=== PATIENT | female | born 2000 ===

== ENCOUNTER 2024-05-24 08:00 | Outpatient (CLI) | payer BC ==
--- NOTE | 2024-05-24 14:20 | XRAY Report ---
Foot 3+V RT HISTORY: 23 years of age, RIGHT ANKLE/FOOT PAIN TECHNIQUE: Foot 3+V RT COMPARISON: None. FINDINGS/IMPRESSION: No acute fracture or dislocation. Joint spaces are well maintained. Reviewed by: Nichole Molina MD on 05/24/2024 2:19 PM PDT Approved by: Nichole Molina MD on 05/24/2024 2:19 PM PDT Station ID: [id number]
--- NOTE | 2024-05-24 14:22 | XRAY Report ---
Ankle 3+V RT HISTORY: 23 years of age, RIGHT ANKLE/FOOT PAIN TECHNIQUE: Ankle 3+V RT COMPARISON: None. FINDINGS/IMPRESSION: Mild medial malleolar soft tissue swelling. No acute fracture or dislocation. Joint spaces are well m aintained. Reviewed by: Nichole Molina MD on 05/24/2024 2:21 PM PDT Approved by: Nichole Molina MD on 05/24/2024 2:21 PM PDT Station ID: [id number]
== END 2024-05-24 23:59 | disposition home or self-care (01) ==
LOC: DI.S 08:00
PROVIDERS: ATTEND Registered Nurse
DX: M25.571 Pain in right ankle and joints of right foot (principal); M79.671 Pain in right foot; R22.41 Localized swelling, mass and lump, right lower limb

== ENCOUNTER 2024-06-17 17:58 | Emergency (ER) | payer BC ==
[2024-06-17 19:21] LABS: BASOPHILS # (AUTO) 0.1 10^3/uL (0.0-0.1); BASOPHILS % (AUTO) 0.9 %; EOSINOPHILS # (AUTO) 0.1 10^3/uL (0.0-0.7); EOSINOPHILS % (AUTO) 0.8 %; LYMPHOCYTES # (AUTO) 2.6 10^3/uL (1.5-3.5); LYMPHOCYTES % (AUTO) 35.4 %; MEAN CORPUSCULAR HEMOGLOBIN 27.2 pg (27.0-31.0); MEAN CORPUSCULAR HGB CONC 32.4 g/dL (32.0-36.0); MEAN CORPUSCULAR VOLUME 83.9 fL (81.0-99.0); MEAN PLATELET VOLUME 10.1 fL (7.9-10.8); MONOCYTES # (AUTO) 0.5 10^3/uL (0.0-1.0); MONOCYTES % (AUTO) 6.4 %; NEUTROPHILS # (AUTO) 4.2 10^3/uL (1.5-6.6); NEUTROPHILS % (AUTO) 56.5 %; PLT - PLATELET COUNT 358 10^3/uL (130-450); RED BLOOD COUNT 4.41 10^6/uL (4.20-5.40); RED CELL DISTRIBUTION WIDTH 13.4 % (12.0-15.0); WHITE BLOOD COUNT 7.4 x10^3/uL (4.8-10.8)
[2024-06-17 19:34] LABS: ALBUMIN 4.1 g/dL (3.2-5.5); ALBUMIN/GLOBULIN RATIO 1.6 (1.0-2.2); BILIRUBIN,TOTAL 0.2 mg/dL (0.2-1.0); CALCIUM 9.3 mg/dL (8.5-10.3); CREATININE 0.8 mg/dL (0.6-1.3); POTASSIUM 3.9 mmol/L (3.5-4.5); TOTAL PROTEIN 6.7 g/dL (6.4-8.9)
--- NOTE | 2024-06-17 19:48 | ED Physician Documentation ---
History of Present Illness - Stated complaint Stated Complaint: BLURRY VISION - Chief complaint Chief Complaint: General - History obtained from History obtained from: Patient - Additonal information Additional information: 23-year-old female with no reported past medical history presents for evaluation after lightheaded episode at work. Patient states that she was at work when her vision "meron out". She states that she sat down but her limbs felt wobbly and she felt lightheaded. Patient stated that her vision felt blurry and she had a very low-grade frontal headache so she decided to present for general evaluation. Patient reported blurry vision and headache to triage nurse, however she states that since she has been in the emergency department her all of her symptoms have resolved and she feels back to her baseline. Review of Systems Constitutional: denies: Fever, Chills Eyes: reports: Other ('vision meron out temporarily'). denies: Loss of vision, Decreased vision Cardiac: denies: Chest pain / pressure, Palpitations, Calf pain Respiratory: denies: Dyspnea, Cough, Wheezing Neurologic: reports: Headache (now resolved), Other (lightheaded). denies: Generalized weakness, Focal weakness, Numbness, Difficulty speaking PD PAST MEDICAL HISTORY - Past Medical History Past Medical History: Yes Cardiovascular: None Respiratory: None Neuro: Headaches Endocrine/Autoimmune: None GI: None [employer]: None : None HEENT: None Psych: Depression, Anxiety Musculoskeletal: None Derm: Psoriasis - Past Surgical History Past Surgical History: Yes General: Appendectomy HEENT: Tonsil/Adenoidectomy - Present Medications Home Medications: Ambulatory Orders Medication Instructions Recorded Confirmed hydrOXYzine pamoate [Hydroxyzine 25 mg PO DAILY PRN 06/17/24 06/17/24 Pamoate] - Allergies Allergies/Adverse Reactions: Allergies Allergy/AdvReac Type Severity Reaction Status Date / Time Penicillins AdvReac Unknown Verified 06/17/24 18:02 - Social History Does the pt smoke?: No Smoking Status: Never smoker Does the pt drink ETOH?: Yes Does the pt have substance abuse?: No - Immunizations Immunizations are current?: Yes - POLST Patient has POLST: No PD ED PE NORMAL - Vitals Vital signs reviewed: Yes - General General: Alert and oriented X 3, No acute distress, Well developed/nourished - Cardiac Cardiac: RRR, Strong equal pulses - Respiratory Respiratory: No respiratory distress, Clear bilaterally - Abdomen Abdomen: Soft, Non tender, Non distended - Derm Derm: Normal color, Warm and dry, No rash - Neuro Neuro: Alert and oriented X 3, mac operator 2-12 intact, No motor deficit, Normal speech - Psych Psych: Normal mood, Normal affect Results - Vitals Vitals: Vital Signs - 24 hr 06/17/24 06/17/24 18:03 18:30 Temperature 36.6 C Heart Rate 60 50 L Respiratory 16 18 Rate Blood Pressure 145/75 H 138/92 H O2 Saturation 100 99 Oxygen O2 Source Room air - Labs Labs: Laboratory Tests 06/17/24 06/17/24 06/17/24 19:16 19:16 20:04 WBC 7.4 RBC 4.41 Hgb 12.0 Hct 37.0 MCV 83.9 MCH 27.2 MCHC 32.4 RDW 13.4 Plt Count 358 MPV 10.1 Neut # (Auto) 4.2 Lymph # (Auto) 2.6 [place] # (Auto) 0.5 Eos # (Auto) 0.1 Baso # (Auto) 0.1 Absolute Nucleated RBC 0.00 Nucleated RBC % 0.0 Sodium 139 Potassium 3.9 Chloride 107 Carbon Dioxide 26 Anion Gap 6.0 BUN 9 Creatinine 0.8 Estimated GFR (MDRD) 88 L Glucose 97 Calcium 9.3 Total Bilirubin 0.2 AST 13 ALT 11 Alkaline Phosphatase 40 L Total Protein 6.7 Albumin 4.1 Globulin 2.6 Albumin/Globulin Ratio 1.6 Urine Color LIGHT YELLOW Urine Clarity CLEAR Urine pH 6.0 Ur Specific [place] 1.010 Urine Protein NEGATIVE Urine Glucose (UA) NEGATIVE Urine Ketones NEGATIVE Urine Occult Blood NEGATIVE Urine Nitrite NEGATIVE Urine Bilirubin NEGATIVE Urine Urobilinogen 0.2 (NORMAL) Ur Leukocyte Esterase NEGATIVE Ur Microscopic Review NOT INDICATED Urine Culture Comments NOT INDICATED PD Medical Decision Making - ED course Complexity details: reviewed results, re-evaluated patient, considered differential, d/w patient ED course: Well-appearing patient with episode of lightheadedness and gian out vision at work. States that since she has been in the emergency department her symptoms have resolved and she feels back to her baseline. Physical exam is benign, no concerning findings. Laboratory work to check for electrolytes and hydration status ordered. Laboratory work is unremarkable, hemoglobin normal, electrolytes within normal limits. Urinalysis negative for signs of infection. Patient informed of lab findings, recommended she drink plenty fluids, get rest, and if she has additional episodes such as these she should follow-up with her primary care doctor to see if any other additional testing is needed. Departure - Departure Disposition: 01 Home, Self Care Clinical Impression: Lightheadedness Condition: Stable Instructions: ED Dizziness [facility] Comments: Your laboratory work today is normal, your electrolytes are perfect, and there are no signs of dehydration on either your lab work or your urinalysis. I do not know the cause of your symptoms here today, but your exam and blood work is reassuring. I recommend following up with your primary care doctor as needed if you continue to experience symptoms. Make sure to stay hydrated and drink plenty of fluids. Forms: PCP List Discharge Date/Time: 06/17/24 20:53
[2024-06-17 19:52] VITALS: BP 138/92; O2SAT 99
[2024-06-17 20:10] LABS: BILIRUBIN,URINE NEGATIVE (NEGATIVE); GLUCOSE, URINE (UA) NEGATIVE (NEGATIVE); KETONES,URINE (UA) NEGATIVE (NEGATIVE); LEUKOCYTE ESTERASE, URINE NEGATIVE (NEGATIVE); NITRITE,URINE NEGATIVE (NEGATIVE); OCCULT BLOOD,URINE NEGATIVE (NEGATIVE); PROTEIN,URINE NEGATIVE (NEGATIVE); UROBILINOGEN,URINE 0.2 (NORMAL) E.U./dL (NORMAL)
[2024-06-17 20:12] LABS: CLARITY,URINE CLEAR (CLEAR)
== END 2024-06-17 20:53 | disposition home or self-care (01) ==
LOC: ED 17:58
DX: R42 Dizziness and giddiness (principal); H53.8 Other visual disturbances
CPT/HCPCS: 36415; 80053; 81001; 81003; 85025; 87086; 99283